=== PATIENT | male | born 1955 | race Caucasian/White ===

== ENCOUNTER 2025-01-24 13:36 | Inpatient (IN) | payer MEDICARE, MEDICAID ==
[~2025-01-24] VITALS: Ht 172.7 cm; Wt 81.6 kg
[2025-01-24 14:29] LABS: EOSINOPHILS % (AUTO) 3.7 % (1.0-6.0); HEMATOCRIT 35.5 % (41-53); HEMOGLOBIN 11.2 g/dL (13.5-17.5); LYMPHOCYTES # (AUTO) 1.4 K/uL (1.0-4.8); LYMPHOCYTES % (AUTO) 31.2 % (22.0-44.0); MEAN CORPUSCULAR HEMOGLOBIN 27.3 pg (26.0-34.0); MEAN CORPUSCULAR HGB CONC 31.6 G/dL (31.0-37.0); MEAN CORPUSCULAR VOLUME 87 fL (80-100); MONOCYTES # (AUTO) 0.4 K/uL (0.1-1.0); NEUTROPHILS # (AUTO) 2.5 K/uL (1.8-7.7); NEUTROPHILS % (AUTO) 55.1 % (40.0-70.0); PLATELET COUNT (AUTO) 166 K/uL (150-450); RED BLOOD CELL COUNT(AUTO) 4.11 MIL/uL (4.50-5.90); WHITE BLOOD COUNT (AUTO) 4.5 K/uL (4.5-11.0)
[2025-01-24 14:40] LABS: COVID AG,FIA SOURCE NASAL SWAB
[2025-01-24 14:45] LABS: ALBUMIN 3.1 g/dL (3.4-5.0); BILIRUBIN,DIRECT 0.2 mg/dL (0.00-0.20); BILIRUBIN,TOTAL 0.4 mg/dL (0.1-1.0); TOTAL PROTEIN, SERUM 8.3 g/dL (6.4-8.2)
[2025-01-24 14:54] LABS: CALCIUM, TOTAL 9.6 mg/dL (8.8-10.5); CARBON DIOXIDE 26 mmol/L (22-29); CREATININE 1.62 mg/dL (0.60-1.30); GLOMERULAR FILTR. RATE CALC 42 mL/min (>60); GLUCOSE,RANDOM 184 mg/dL (70-110); THYROID STIMULATING HORMONE 1.26 uIU/mL (0.36-3.74); UREA NITROGEN, BLOOD 23 mg/dL (7-18)
[2025-01-24 15:08] LABS: SARS-COV2 (COVID) ANTIGEN,FIA Negative (Negative)
[2025-01-24 15:33] LABS: ALCOHOL, BLOOD (SERUM) < 3 mg/dL (0-10)
[2025-01-24 15:34] LABS: ANION GAP 7 mmol/L (8-16); CHLORIDE 103 mmol/L (98-107); POTASSIUM 4.6 mmol/L (3.5-5.1); SODIUM SERUM 136 mmol/L (136-145)
[2025-01-24 15:42] LABS: APPEARANCE,URINE CLEAR (CLEAR); BILIRUBIN,URINE NEGATIVE (NEGATIVE); COLOR,URINE LIGHT YELLOW (YELLOW); GLUCOSE, URINE (UA) >=1000 mg/dL (NEGATIVE); KETONES,URINE NEGATIVE (NEGATIVE); LEUKOCYTE ESTERASE ,URINE NEGATIVE (NEGATIVE); NITRATE,URINE NEGATIVE (NEGATIVE); OCCULT BLOOD,URINE NEGATIVE (NEGATIVE); PH,URINE 5.5 (5.0-8.0); PH,URINE DRUG SCREEN 5.5 (5.0-8.0); PROTEIN,URINE TRACE mg/dL (NEGATIVE); SPECIFIC GRAVITIY, URINE 1.018 (1.003-1.030); UROBILINOGEN,URINE <=1.0 mg/dL (<=1.0)
[2025-01-24] MEDS ORDERED: HALOPERIDOL 5 MG TABLET PO PRN (15:45)
[2025-01-24 15:49] LABS: AMPHET/METH SCREEN,URINE NEGATIVE (NEGATIVE); BARBITURATE SCREEN, URINE NEGATIVE (NEGATIVE); BENZODIAZEPINES SCREEN,URINE NEGATIVE (NEGATIVE); CANNABINOID SCREEN,URINE NEGATIVE (NEGATIVE); COCAINE SCREEN,URINE NEGATIVE (NEGATIVE); METHADONE SCREEN, URINE NEGATIVE (NEGATIVE); OPIATE SCREEN,URINE NEGATIVE (NEGATIVE); PHENCYCLIDINE SCREEN,URINE NEGATIVE (NEGATIVE)
[2025-01-24 15:50] LABS: ALCOHOL, URINE DRUG SCREEN NEGATIVE (NEGATIVE)
[2025-01-24 16:04] LABS: RBC,URINE 0-2 /HPF (0-2)
[2025-01-24 16:05] LABS: BACTERIA,URINE Rare /HPF (None Seen); SQUAMOUS EPITHELIAL CELL,UR Rare /LPF (None Seen); WBC,URINE 0-2 /HPF (0-5)
[2025-01-24] MEDS ORDERED: GABA-1181 PO (16:33)
[2025-01-24] MEDS ORDERED: ESCI-8 PO (16:33)
[2025-01-24] MEDS ORDERED: EMPA25TA3 PO (16:33)
[2025-01-24] MEDS ORDERED: PRAV40TA4 PO (16:33)
[2025-01-24] MEDS ORDERED: THIA100T92 PO (16:33)
[2025-01-24] MEDS ORDERED: PANT20TA18 PO (16:33)
[2025-01-24] MEDS ORDERED: INSU100V42 SQ (16:33)
[2025-01-24] MEDS ORDERED: FOLI-130 PO (16:33)
[2025-01-24] MEDS ORDERED: TRAZ-184 PO (16:33)
[2025-01-24] MEDS ORDERED: PRAZ1 PO (16:33)
[2025-01-24] MEDS ORDERED: METO-408 PO (16:33)
[2025-01-24] MEDS ORDERED: LISI40TA9 PO (16:33)
[2025-01-24] MEDS ORDERED: INSLAN SQ (16:33)
[2025-01-24] MEDS: LORazepam 2 MG TABLET PO PRN (20:13)
[2025-01-24] MEDS: ZOLPIDEM TARTRATE 10 MG TABLET PO PRN (20:13)
[2025-01-25 17:35] VITALS: BP 138/97; PULSE 74; RESP 18; TEMP 97.5; O2SAT 97
[2025-01-25 19:20] VITALS: BP 144/90; PULSE 77; RESP 16; TEMP 97.7; O2SAT 98
[2025-01-25] MEDS ORDERED: INFLUENZA VIRUS VACCINE TVS (6MO+) 2024-25/PF 45 MCG/0.5 ML SYRINGE IM. ONE (19:30)
[2025-01-25] MEDS ORDERED: PNEUMOCOCCAL VACCINE POLYVALENT 0.5 ML SYRINGE [PPSV23] IM. ONE (19:30)
[2025-01-25] MEDS ORDERED: GLUCAGON,HUMAN RECOMBINANT 1 MG VIAL IM PRN (20:30)
[2025-01-25 20:45] LABS: GLUCOMETER DEV NAME(LOC) BV2S.; GLUCOSE,POINT OF CARE 339 MG/DL (70-110)
[2025-01-25 21:48] VITALS: RESP 18; TEMP 97.4
[2025-01-26] MEDS: INSULIN LISPRO 100 UNITS/ML SQ PRN (06:28)
[2025-01-26] MEDS ORDERED: IBUPROFEN 400 MG TABLET PO PRN (07:45)
[2025-01-26] MEDS ORDERED: LOPERAMIDE HCL 2 MG CAPSULE PO PRN (07:45)
[2025-01-26] MEDS ORDERED: NICOTINE 14 MG/24 HOUR PATCH TD PRN (07:45)
[2025-01-26] MEDS ORDERED: PETROLATUM,WHITE 28 GM JELLY TP PRN (07:45)
[2025-01-26] MEDS ORDERED: ONDANSETRON 4 MG TABLET PO PRN (07:45)
[2025-01-26] MEDS ORDERED: ACETAMINOPHEN 325 MG TABLET PO PRN (07:45)
[2025-01-26] MEDS ORDERED: MAGNESIUM HYDROXIDE SUSPENSION 30 ML UDCUP PO PRN (07:45)
[2025-01-26] MEDS ORDERED: CloNIDine HCL 0.1 MG TABLET PO PRN (07:45)
[2025-01-26] MEDS ORDERED: MAG HYDROX/ALUMINUM HYD/SIMETH ES 30 ML SUSPENSION UDCUP PO PRN (07:45)
[2025-01-26] MEDS ORDERED: DOCUSATE SODIUM 100 MG CAPSULE PO PRN (07:45)
[2025-01-26] MEDS ORDERED: ALBUTEROL SULFATE HFA 90 MCG/PUFF 8 GM INHALER IH PRN (07:45)
[2025-01-26] MEDS ORDERED: GuaiFENesin/D-METHORPHAN [SUGAR-FREE] 200-20MG/10 ML SYRUP UDCUP PO PRN (07:45)
[2025-01-26 08:20] VITALS: BP 125/75; PULSE 76; RESP 15; TEMP 97.7
[2025-01-26 08:25] LABS: GLUCOMETER DEV NAME(LOC) BV2S.; GLUCOSE,POINT OF CARE 172 MG/DL (70-110)
[2025-01-26 08:36] LABS: HEMOGLOBIN A1C 8.1 % (3.8-5.6)
[2025-01-26 08:59] LABS: CHOL/HDL RATIO 2.5 (4.2-7.3); FREE T4 (FREE THYROXINE) 0.91 ng/dL (0.76-1.46)
[2025-01-26] MEDS: FOLIC ACID 1 MG TABLET PO SCH (10:37)
[2025-01-26] MEDS: METOPROLOL SUCCINATE 25 MG ER TABLET PO SCH (10:37)
[2025-01-26] MEDS: INSULIN GLARGINE,HUM.REC.ANLOG 100 UNITS/ML SQ SCH (10:39)
[2025-01-26] MEDS: ESCITALOPRAM OXALATE 10 MG TABLET PO SCH (11:00)
[2025-01-26] MEDS: EMPAGLIFLOZIN 25 MG TABLET PO SCH (16:07)
[2025-01-26] MEDS: PRAVASTATIN SODIUM 40 MG TABLET PO SCH (16:08)
[2025-01-26 21:30] LABS: GLUCOMETER DEV NAME(LOC) BV2S.; GLUCOSE,POINT OF CARE 254 MG/DL (70-110)
[2025-01-26] MEDS: TraZODone HCL 50 MG TABLET PO SCH (21:31)
[2025-01-26 22:00] LABS: GLUCOMETER DEV NAME(LOC) BV2S.; GLUCOSE,POINT OF CARE 120 MG/DL (70-110)
[2025-01-26 23:48] VITALS: RESP 18
[2025-01-27 08:28] LABS: HEMOGLOBIN A1C 7.9 % (3.8-5.6)
[2025-01-27 08:41] LABS: CHOL/HDL RATIO 2.9 (4.2-7.3); THYROID STIMULATING HORMONE 1.67 uIU/mL (0.36-3.74)
[2025-01-27 09:41] VITALS: BP 112/75; PULSE 72; RESP 18; TEMP 97; O2SAT 97
[2025-01-27 11:45] LABS: GLUCOMETER DEV NAME(LOC) BV2S.; GLUCOSE,POINT OF CARE 192 MG/DL (70-110)
[2025-01-27 11:46] LABS: GLUCOMETER DEV NAME(LOC) BV2S.; GLUCOSE,POINT OF CARE 289 MG/DL (70-110)
[2025-01-27 16:46] LABS: GLUCOMETER DEV NAME(LOC) BV2S.; GLUCOSE,POINT OF CARE 263 MG/DL (70-110)
[2025-01-27 20:22] VITALS: BP 127/83; PULSE 69; RESP 18; TEMP 97.5; O2SAT 97
[2025-01-28 01:25] LABS: GLUCOMETER DEV NAME(LOC) BV2S.; GLUCOSE,POINT OF CARE 272 MG/DL (70-110)
[2025-01-28 08:35] LABS: GLUCOMETER DEV NAME(LOC) BV2S.; GLUCOSE,POINT OF CARE 209 MG/DL (70-110)
[2025-01-28 09:06] LABS: CALCIUM, TOTAL 9.7 mg/dL (8.8-10.5); CREATININE 1.2 mg/dL (0.60-1.30); POTASSIUM 4.5 mmol/L (3.5-5.1)
[2025-01-28 09:40] VITALS: BP 117/70; PULSE 73; RESP 16; TEMP 97; O2SAT 95
[2025-01-28 10:56] LABS: GLUCOMETER DEV NAME(LOC) BV2S.; GLUCOSE,POINT OF CARE 262 MG/DL (70-110)
[2025-01-28 12:00] LABS: GLUCOMETER DEV NAME(LOC) BV2S.; GLUCOSE,POINT OF CARE 330 MG/DL (70-110)
[2025-01-28] MEDS ORDERED: PANT-31 PO (17:57)
[2025-01-28 20:37] VITALS: BP 115/80; PULSE 95; RESP 18; TEMP 98; O2SAT 98
[2025-01-28 22:40] LABS: GLUCOMETER DEV NAME(LOC) BV2S.; GLUCOSE,POINT OF CARE 231 MG/DL (70-110)
[2025-01-28 22:40] LABS: GLUCOMETER DEV NAME(LOC) BV2S.; GLUCOSE,POINT OF CARE 226 MG/DL (70-110)
[2025-01-29 09:46] LABS: GLUCOMETER DEV NAME(LOC) BV2S.; GLUCOSE,POINT OF CARE 230 MG/DL (70-110)
[2025-01-29 10:32] VITALS: BP 130/80; PULSE 72; RESP 18; TEMP 97; O2SAT 97
[2025-01-29 11:55] LABS: GLUCOMETER DEV NAME(LOC) BV2S.; GLUCOSE,POINT OF CARE 321 MG/DL (70-110)
[2025-01-29 20:25] LABS: GLUCOMETER DEV NAME(LOC) BV2S.; GLUCOSE,POINT OF CARE 237 MG/DL (70-110)
[2025-01-29 20:46] VITALS: BP 153/94; PULSE 67; RESP 18; TEMP 98; O2SAT 97
[2025-01-30 07:25] LABS: GLUCOMETER DEV NAME(LOC) BV2S.; GLUCOSE,POINT OF CARE 208 MG/DL (70-110)
[2025-01-30 10:10] VITALS: BP 112/64; PULSE 63; RESP 18; TEMP 97.7; O2SAT 99
[2025-01-30 11:51] LABS: GLUCOMETER DEV NAME(LOC) BV2S.; GLUCOSE,POINT OF CARE 173 MG/DL (70-110)
[2025-01-30 16:40] LABS: GLUCOMETER DEV NAME(LOC) BV2X.3; GLUCOSE,POINT OF CARE 155 MG/DL (70-110)
[2025-01-30 20:04] VITALS: BP 113/77; PULSE 69; RESP 19; TEMP 97.9; O2SAT 96
[2025-01-30 20:40] LABS: GLUCOMETER DEV NAME(LOC) BV2X.3; GLUCOSE,POINT OF CARE 237 MG/DL (70-110)
[2025-01-31 06:01] LABS: GLUCOMETER DEV NAME(LOC) BV2X.3; GLUCOSE,POINT OF CARE 167 MG/DL (70-110)
[2025-01-31 08:36] VITALS: BP 110/69; PULSE 67; RESP 18; TEMP 97.2; O2SAT 97
[2025-01-31 09:26] LABS: GLUCOMETER DEV NAME(LOC) BV2X.3; GLUCOSE,POINT OF CARE 235 MG/DL (70-110)
[2025-01-31 12:15] LABS: GLUCOMETER DEV NAME(LOC) BV2X.3; GLUCOSE,POINT OF CARE 192 MG/DL (70-110)
[2025-01-31 16:56] LABS: GLUCOMETER DEV NAME(LOC) BV2X.3; GLUCOSE,POINT OF CARE 321 MG/DL (70-110)
== END 2025-01-31 18:30 | DRG 885 ==
LOC: EMS 13:39 → B2S 01-25 14:59 → B2X 01-30 11:41
PROVIDERS: ADMIT Psychiatry & Neurology Psychiatry; ATTEND Psychiatry & Neurology Psychiatry
PROC: GZHZZZZ Group Psychotherapy (ICD-10-PCS; principal; 2025-01-26)
PROC: GZ52ZZZ Individual Psychotherapy, Cognitive (ICD-10-PCS; 2025-01-26)
DX: F33.2 Major depressive disorder, recurrent severe without psychotic features (principal); E11.9 Type 2 diabetes mellitus without complications; H54.8 Legal blindness, as defined in USA; E78.5 Hyperlipidemia, unspecified; G47.00 Insomnia, unspecified; Z20.822 Contact with and (suspected) exposure to COVID-19; I10 Essential (primary) hypertension; Z79.4 Long term (current) use of insulin; Z79.899 Other long term (current) drug therapy
CPT/HCPCS: 80048; 80061; 80076; 80307; 81001; 81003; 82962; 83036; 84439; 84443; 85025; 87081; 99285; G0480; J1815